=== PATIENT | female | born 1950 | race Caucasian/White ===

== ENCOUNTER 2018-10-15 15:58 | Observation (INO) | payer MEDICARE, OTHER ==
[2018-10-15] MEDS ORDERED: Temazepam 15 MG Cap PO PRN (16:17)
[2018-10-15] MEDS ORDERED: Ondansetron 4 MG/2 ML SDV IVPUSH PRN (16:30)
--- NOTE | 2018-10-15 16:35 | PCM.HP.2 ---
H&P History of Present Illness - General Date of Service: 10/15/18 Admit Problem/Dx: Admission Diagnosis/Problem Admission Diagnosis/Problem Dehydration Source of Information: Patient History Limitations: Reports: No Limitations - History of Present Illness Initial Comments - Free Text/Narative: Patient was diagnosed with pneumonia one month ago and treated with Zithromax. Patient states feeling better up until 7-10 days ago when she started with sinus congestion, and her CPAP settings were changed. Complains of sinus congestion, ears being plugged, PND and nausea and vomiting. patient is unable to keep food down. Onset of Symptoms: Reports: Gradual Duration of Symptoms: Reports: Getting Worse Location: Reports: Head Quality: Reports: Pressure Severity: Moderate Associated Symptoms: Reports: cough w sputum, Loss of Appetite, Nausea/Vomiting - Related Data Allergies/Adverse Reactions: Allergies Allergy/AdvReac Type Severity Reaction Status Date / Time amoxicillin trihydrate Allergy Abdominal Verified 01/02/14 15:48 [From Augmentin] Pain ibuprofen [From Motrin] Allergy Hives Verified 01/02/14 13:59 oxycodone [Oxycodone] Allergy Abdominal Verified 01/02/14 13:59 Pain potassium clavulanate Allergy Abdominal Verified 01/02/14 15:48 [From Augmentin] Pain Home Medications: Home Meds Acetaminophen [Tylenol] 650 mg PO Q4H PRN #20 tablet 01/09/14 [Rx] Aspirin [Halfprin] 81 mg PO BRK #90 tab.ec 01/09/14 [Rx] Calcium Carbonate [Tums Extra Strength] 750 mg PO DAILY #90 tab.chew 01/09/14 [ Rx] Cholecalciferol (Vitamin D3) [Vitamin D3] 1,000 units PO DAILY #90 tablet [Rx] Docusate Sodium/Sennosides [Senna Plus] 2 tab PO BID #90 tablet 01/09/14 [Rx] Loratadine [Claritin] 10 mg PO DAILY #90 tablet 01/09/14 [Rx] Nystatin [Nystatin Crm] 0 gm TOP QID PRN 14 Days tube 01/09/14 [Rx] Olmesartan [Benicar] 40 mg PO DAILY #90 tablet 01/09/14 [Rx] Simvastatin [Zocor] 20 mg PO BEDTIME #90 tablet 01/09/14 [Rx] metFORMIN [Glucophage] 500 mg PO BIDM #180 tablet 01/09/14 [Rx] traMADol [Ultram] 100 mg PO Q6H PRN #40 tablet 01/09/14 [Rx] Past Medical History - Past Health History Medical/Surgical History: Denies Medical/Surgical History HEENT History: Reports: Sinusitis Cardiovascular History: Reports: Hypertension Psychiatric History: Reports: Anxiety - Past Surgical History GI Surgical History: Reports: Cholecystectomy Female Surgical History: Reports: Tubal Ligation Other Endocrine Surgeries/Procedures: renal artery repair Musculoskeletal Surgical History: Reports: Knee Replacement Social & Family History - Tobacco Use Smoking Status *Q: Never Smoker - Alcohol Use Alcohol Use History: No - Living Situation & Occupation Living situation: Reports: Occupation: Retired H&P Review of Systems - Review of Systems: Review Of Systems: See Below General: Reports: Weakness, Fatigue, Decreased Appetite HEENT: Reports: Post Nasal Drip, Sinus Congestion Pulmonary: Reports: Cough Cardiovascular: Reports: No Symptoms Gastrointestinal: Reports: Decreased Appetite, Nausea, Vomiting Musculoskeletal: Reports: No Symptoms Skin: Reports: No Symptoms Psychiatric: Reports: Anxiety Neurological: Reports: No Symptoms Hematologic/Lymphatic: Reports: No Symptoms Immunologic: Reports: No Symptoms Exam - Exam Exam: See Below - Vital Signs Weight: 216 lb 8 oz - Exam General: Alert, Oriented, Cooperative HEENT: Conjunctiva Clear, EACs Clear, EOMI, Hearing Intact, Posterior Pharynx Clear, Pupils Reactive (pressure over the frontal and maxillary sinuses), TMs Clear Neck: Supple, Trachea Midline Lungs: Clear to Auscultation, Normal Respiratory Effort Cardiovascular: Regular Rate, Regular Rhythm, Normal S1, Normal S2 GI/Abdominal Exam: Normal Bowel Sounds, Soft, Non-Tender, No Organomegaly, No Distention Back Exam: Normal Inspection, Full Range of Motion Extremities: Normal Inspection, Normal Range of Motion, Non-Tender, No Pedal Edema, Normal Capillary Refill Peripheral Pulses: 1+: Dorsalis Pedis (L), Dorsalis Pedis (R) Skin: Warm, Dry, Intact Neurological: Cranial Nerves Intact, Reflexes Equal Bilateral, Strength Equal Bilateral Neuro Extensive - Mental Status: Alert, Oriented x3, Normal Mood/Affect, Normal Cognition, Memory Intact Neuro Extensive - Motor, Sensory, Reflexes: CN II-XII Intact, Normal Gait, Normal Reflexes DTR: 1+: Achilles (L), Achilles (R) Psychiatric: Alert, Normal Affect, Normal Mood - Problem List (1) Dehydration SNOMED Code(s): 03899368 ICD Code: E86.0 - DEHYDRATION Status: Acute Current Visit: Yes Problem Details: will start IV fluids (2) Diabetes SNOMED Code(s): 36789523 ICD Code: E11.9 - TYPE 2 DIABETES MELLITUS WITHOUT COMPLICATIONS Status: Acute Current Visit: Yes Qualifiers: Diabetes mellitus type: type 2 Diabetes mellitus complication status: without complication (3) Sinusitis SNOMED Code(s): 24840558 ICD Code: J32.9 - CHRONIC SINUSITIS, UNSPECIFIED Status: Acute Current Visit: Yes Qualifiers: Sinusitis location: maxillary Chronicity: acute (4) HTN, Essential hypertension SNOMED Code(s): 70029257 ICD Code: I10 - ESSENTIAL (PRIMARY) HYPERTENSION Status: Chronic Current Visit: No Problem Details: continue on Benicar Problem List Initiated/Reviewed/Updated: Yes Orders Last 24hrs: Active Orders 24 hr Category Date Time Status Patient Status [ADT] Routine ADT 10/15/18 16:17 Active Ambulate [RC] ASDIRECTED Care 10/15/18 16:17 Active Blood Glucose Check, Bedside [RC] BIDMEALS Care 10/15/18 16:17 Active May Shower [RC] ASDIRECTED Care 10/15/18 16:17 Active Oxygen Therapy [RC] PRN Care 10/15/18 16:17 Active VTE/DVT Education [RC] PER UNIT ROUTINE Care 10/15/18 16:17 Active Vital Signs [RC] Q4H Care 10/15/18 16:17 Active [employer] Diet [DIET] Diet 10/15/18 Dinner Active Chest 2V [CR] Routine Exams 10/15/18 16:00 Ordered Chest 2V [CR] Routine Exams 10/17/18 16:00 Stop Req BASIC METABOLIC PANEL,BMP [CHEM] AM Lab 10/16/18 05:11 Ordered C-REACTIVE PROTEIN [CHEM] AM Lab 10/16/18 05:11 Ordered CBC WITH AUTO DIFF [HEME] AM Lab 10/16/18 05:11 Ordered Acetaminophen [Tylenol] Med 10/15/18 16:17 Ordered 650 mg PO Q4H PRN Ondansetron [Zofran] Med 10/15/18 16:17 Ordered 4 mg IVPUSH Q6H PRN Sodium Chloride 0.9% @ 75 MLS/HR(1000ml) Med 10/15/18 16:30 Ordered Sodium Chloride 0.9% [Normal Saline] 1,000 ml IV ASDIRECTED Temazepam [Restoril] Med 10/15/18 16:17 Ordered 15 mg PO BEDTIME PRN methylPREDNISolone Sod Succ [Solu-MEDROL] Med 10/15/18 17:00 Ordered 40 mg IVPUSH DAILY Resuscitation Status Routine Resus Stat 10/15/18 16:17 Ordered Medication Orders Acetaminophen (Tylenol) 650 mg PO Q4H PRN PRN Reason: Pain (Mild 1-3)/fever Sodium Chloride (Normal Saline) 1,000 mls @ 75 mls/hr IV ASDIRECTED DAREN Methylprednisolone Sodium Succinate (Solu-Medrol) 40 mg IVPUSH DAILY DAREN Ondansetron HCl (Zofran) 4 mg IVPUSH Q6H PRN PRN Reason: Nausea/Vomiting Temazepam (Restoril) 15 mg PO BEDTIME PRN PRN Reason: Sleep Assessment/Plan Comment:: Patient is admitted to observation under Dr Sheets for dehydration with IV fluids. Will give one dose of solumedrol due to sinus pressure and recurrent sinusitis. Patient is diabetic, will monitor blood sugars. Recheck lab in the morning. Awaiting lab results. Patient agreed to plan of care and hospitalization. Kanchan Prince,CALIBRATION CHECKER
[2018-10-15] MEDS ORDERED: Levofloxacin/Dextrose 5%-Water 500 MG in Premix Bag 1 BAG IV ONE (16:43)
[2018-10-15 16:53] LABS: CHLORIDE,CL 100 mmol/L (98-107); SODIUM,NA 137 mmol/L (136-145)
[2018-10-15] MEDS: Sodium Chloride 0.9% 1,000 ML IV SCH (16:59)
[2018-10-15] MEDS: methylPREDNISolone Sodium Succinate 40 MG/1 ML SDV IVPUSH SCH (16:59)
[2018-10-15] MEDS: Acetaminophen 325 MG Tab PO PRN (17:20)
[2018-10-15] MEDS ORDERED: Sodium Chloride 0.9% 10 ML Syringe FLUSH PRN (18:54)
[2018-10-15] MEDS: metFORMIN 500 MG Tab PO SCH (19:36)
[2018-10-16] MEDS: Acetaminophen 325 MG Tab PO PRN ×2 (05:39)
[2018-10-16] MEDS: Sodium Chloride 0.9% 1,000 ML IV SCH (07:22)
[2018-10-16] MEDS: metFORMIN 500 MG Tab PO SCH (07:47)
[2018-10-16] MEDS: methylPREDNISolone Sodium Succinate 40 MG/1 ML SDV IVPUSH SCH (07:48)
[2018-10-16] MEDS ORDERED: Olmesartan 20 MG Tab PO SCH (08:00)
[2018-10-16 08:07] LABS: CHLORIDE,CL 102 mmol/L (98-107); SODIUM,NA 137 mmol/L (136-145)
[2018-10-16 11:11] VITALS: BP 146/56
--- NOTE | 2018-10-16 12:08 | PCM.PN ---
- General Info Date of Service: 10/16/18 Admission Dx/Problem (Free Text): Admission Diagnosis/Problem Admission Diagnosis/Problem Dehydration Functional Status: Reports: Pain Controlled - Review of Systems General: Reports: No Symptoms HEENT: Reports: No Symptoms Pulmonary: Reports: No Symptoms Cardiovascular: Reports: No Symptoms Gastrointestinal: Reports: No Symptoms Genitourinary: Reports: No Symptoms Musculoskeletal: Reports: No Symptoms Skin: Reports: No Symptoms Neurological: Reports: No Symptoms Psychiatric: Reports: No Symptoms - Patient Data Vitals - Most Recent: Last Vital Signs Temp 97.8 F 10/16/18 11:10 Pulse 97 10/16/18 11:10 Resp 18 10/16/18 11:10 BP 146/56 H 10/16/18 11:10 Pulse Ox 95 10/16/18 11:10 Weight - Most Recent: 216 lb 8 oz I&O - Last 24 Hours: Intake & Output 10/15/18 10/16/18 10/16/18 22:59 06:59 14:59 Intake Total 100 1245 924 Output Total 450 1225 400 Balance -350 20 524 Lab Results Last 24 Hours: Laboratory Results - last 24 hr 10/15/18 10/15/18 10/16/18 Range/Units 16:25 16:25 07:12 WBC 11.2 H (4.0-10.2) K/uL RBC 4.63 (3.77-5.09) M/uL Hgb 15.7 H (11.7-15.5) g/dL Hct 43.7 (34.0-46.0) % MCV 94.4 (84.0-98.0) fL MCH 33.9 H (28.2-33.3) pg MCHC 35.9 (31.7-36.0) g/dL RDW 12.2 (11.2-14.1) % Plt Count 267 (150-350) K/uL Neut % (Auto) 74.1 (45.0-80.0) % Lymph % (Auto) 18.9 (10.0-50.0) % [place] % (Auto) 6.3 (2.0-14.0) % Eos % (Auto) 0.4 (0.0-5.0) % Baso % (Auto) 0.3 (0.0-2.0) % Neut # (Auto) 8.29 H (1.40-7.00) K/uL Lymph # (Auto) 2.11 (0.50-3.50) K/uL [place] # (Auto) 0.70 (0.00-1.00) K/uL Eos # (Auto) 0.04 (0.00-0.50) K/uL Baso # (Auto) 0.03 (0.00-0.20) K/uL Sodium 137 (136-145) mmol/L Potassium 3.8 (3.5-5.1) mmol/L Chloride 100 (98-107) mmol/L Carbon Dioxide 26.5 (21.0-32.0) mmol/L BUN 10 (7-18) mg/dL Creatinine 0.62 (0.51-1.17) mg/dL Est Cr Clr Drug Dosing 66.78 mL/min Estimated GFR (MDRD) > 60 mL/min Glucose 200 H (74-106) mg/dL POC Glucose 261 H* (65-110) mg/dl Calcium 9.4 (8.5-10.1) mg/dL Total Bilirubin 0.6 (0.2-1.0) mg/dL AST 25 (15-37) U/L ALT 42 (12-78) U/L Alkaline Phosphatase 110 (46-116) IU/L C-Reactive Protein < 0.2 (<=0.9) mg/dL Total Protein 7.5 (6.4-8.2) g/dL Albumin 3.6 (3.4-5.0) g/dL 10/16/18 10/16/18 Range/Units 07:17 07:17 WBC 16.2 H (4.0-10.2) K/uL RBC 4.48 (3.77-5.09) M/uL Hgb 14.6 (11.7-15.5) g/dL Hct 42.0 (34.0-46.0) % MCV 93.8 (84.0-98.0) fL MCH 32.6 (28.2-33.3) pg MCHC 34.8 (31.7-36.0) g/dL RDW 12.1 (11.2-14.1) % Plt Count 283 (150-350) K/uL Neut % (Auto) 84.9 H (45.0-80.0) % Lymph % (Auto) 9.6 L (10.0-50.0) % [place] % (Auto) 5.4 (2.0-14.0) % Eos % (Auto) 0.0 (0.0-5.0) % Baso % (Auto) 0.1 (0.0-2.0) % Neut # (Auto) 13.74 H (1.40-7.00) K/uL Lymph # (Auto) 1.55 (0.50-3.50) K/uL [place] # (Auto) 0.88 (0.00-1.00) K/uL Eos # (Auto) 0.00 (0.00-0.50) K/uL Baso # (Auto) 0.01 (0.00-0.20) K/uL Sodium 137 (136-145) mmol/L Potassium 3.9 (3.5-5.1) mmol/L Chloride 102 (98-107) mmol/L Carbon Dioxide 25.7 (21.0-32.0) mmol/L BUN 10 (7-18) mg/dL Creatinine 0.54 (0.51-1.17) mg/dL Est Cr Clr Drug Dosing 76.67 mL/min Estimated GFR (MDRD) > 60 mL/min Glucose 274 H (74-106) mg/dL POC Glucose (65-110) mg/dl Calcium 9.0 (8.5-10.1) mg/dL Total Bilirubin (0.2-1.0) mg/dL AST (15-37) U/L ALT (12-78) U/L Alkaline Phosphatase (46-116) IU/L C-Reactive Protein < 0.2 (<=0.9) mg/dL Total Protein (6.4-8.2) g/dL Albumin (3.4-5.0) g/dL Med Orders - Current: Current Medications Acetaminophen (Tylenol) 650 mg PO Q4H PRN PRN Reason: Pain (Mild 1-3)/fever Last Admin: 10/16/18 05:39 Dose: 650 mg Sodium Chloride (Normal Saline) 1,000 mls @ 50 mls/hr IV ASDIRECTED DAREN Last Infusion: 10/16/18 08:54 Dose: 50 mls/hr Metformin HCl (Glucophage) 500 mg PO BIDMEALS [facility] Last Admin: 10/16/18 07:47 Dose: 500 mg Methylprednisolone Sodium Succinate (Solu-Medrol) 40 mg IVPUSH DAILY [facility] Last Admin: 10/16/18 07:48 Dose: 40 mg Olmesartan (Benicar) 40 mg PO DAILY [facility] Last Admin: 10/16/18 07:47 Dose: 40 mg Ondansetron HCl (Zofran) 4 mg IVPUSH Q6H PRN PRN Reason: Nausea/Vomiting Last Admin: 10/15/18 16:59 Dose: 4 mg Sodium Chloride (Saline Flush) 10 ml FLUSH ASDIRECTED PRN PRN Reason: Keep Vein Open Temazepam (Restoril) 15 mg PO BEDTIME PRN PRN Reason: Sleep Discontinued Medications Levofloxacin/Dextrose 500 mg/ (Premix) 100 mls @ 100 mls/hr IV ONETIME ONE Stop: 10/15/18 17:42 Last Admin: 10/15/18 17:20 Dose: 100 mls/hr Metformin HCl (Glucophage) 500 mg PO BIDM [facility] Non-Formulary Medication (Olmesartan Medoxomil [Benicar]) 40 mg PO DAILY [facility] - Exam General: Alert, Cooperative, No Acute Distress HEENT: Mucous Membr. Moist/[place] Neck: Trachea Midline, No JVD Lungs: Clear to Auscultation, Normal Respiratory Effort Cardiovascular: Regular Rate, Regular Rhythm GI/Abdominal Exam: Soft, Non-Tender, No Distention (Female) Exam: Deferred Back Exam: Normal Inspection Extremities: Non-Tender, No Pedal Edema Skin: Warm, Dry, Intact Neurological: No New Focal Deficit Psy/Mental Status: Alert, Normal Affect, Normal Mood - Problem List & Annotations (1) Dehydration SNOMED Code(s): 14902044 Code(s): E86.0 - DEHYDRATION Status: Acute Current Visit: Yes Annotation/Comment:: will start IV fluids (2) Diabetes SNOMED Code(s): 12140854 Code(s): E11.9 - TYPE 2 DIABETES MELLITUS WITHOUT COMPLICATIONS Status: Acute Current Visit: Yes Qualifiers: Diabetes mellitus type: type 2 Diabetes mellitus complication status: without complication (3) Sinusitis SNOMED Code(s): 89131388 Code(s): J32.9 - CHRONIC SINUSITIS, UNSPECIFIED Status: Acute Current Visit: Yes Qualifiers: Sinusitis location: maxillary Chronicity: acute (4) Allergic rhinitis SNOMED Code(s): 94847925 Code(s): J30.9 - ALLERGIC RHINITIS, UNSPECIFIED Status: Chronic Current Visit: No (5) Anxiety SNOMED Code(s): 68992823 Code(s): F41.9 - ANXIETY DISORDER, UNSPECIFIED Status: Chronic Current Visit: No (6) HTN, Essential hypertension SNOMED Code(s): 13792072 Code(s): I10 - ESSENTIAL (PRIMARY) HYPERTENSION Status: Chronic Current Visit: No Annotation/Comment:: continue on Benicar (7) Hyperlipidemia SNOMED Code(s): 59743946 Code(s): E78.5 - HYPERLIPIDEMIA, UNSPECIFIED Status: Chronic Current Visit: No - Problem List Review Problem List Initiated/Reviewed/Updated: Yes - My Orders Last 24 Hours: My Active Orders 10/16/18 12:02 Ready for Discharge [RC] PER UNIT ROUTINE 10/16/18 12:03 Discontinue Saline Lock [Peripheral IV Discontinue] [OM.PC] Routine - Plan Plan:: Patient is admitted to observation under Dr Sheets for dehydration with IV fluids. Will give one dose of solumedrol due to sinus pressure and recurrent sinusitis. Patient is diabetic, will monitor blood sugars. Recheck lab in the morning. Awaiting lab results. Patient agreed to plan of care and hospitalization. Kanchan Prince,GED TEACHER 10/16/18 Lindsey Fuentes MD Feels much better today. No vomiting. Ate a good breakfast. Nose unplugged. Blood sugar elevated secondary to solu-medrol. Ready for discharge. Discussed c- pap settings and humidity. Also was exposed to her brother (who is a smoker) x2 in car.
--- NOTE | 2018-10-16 12:09 | PCM.DCSUM1 ---
Discharge Summary - Hospital Course Diagnosis: Stroke: No - Discharge Data Discharge Date: 10/16/18 Discharge Disposition: Home, Self-Care 01 Condition: Good - Discharge Diagnosis/Problem(s) (1) Dehydration SNOMED Code(s): 35793568 ICD Code: E86.0 - DEHYDRATION Status: Acute Current Visit: Yes Problem Details: will start IV fluids (2) Diabetes SNOMED Code(s): 44832877 ICD Code: E11.9 - TYPE 2 DIABETES MELLITUS WITHOUT COMPLICATIONS Status: Acute Current Visit: Yes Qualifiers: Diabetes mellitus type: type 2 Diabetes mellitus complication status: without complication (3) Sinusitis SNOMED Code(s): 65580541 ICD Code: J32.9 - CHRONIC SINUSITIS, UNSPECIFIED Status: Acute Current Visit: Yes Qualifiers: Sinusitis location: maxillary Chronicity: acute (4) Allergic rhinitis SNOMED Code(s): 92471138 ICD Code: J30.9 - ALLERGIC RHINITIS, UNSPECIFIED Status: Chronic Current Visit: No (5) Anxiety SNOMED Code(s): 97453641 ICD Code: F41.9 - ANXIETY DISORDER, UNSPECIFIED Status: Chronic Current Visit: No (6) HTN, Essential hypertension SNOMED Code(s): 01107600 ICD Code: I10 - ESSENTIAL (PRIMARY) HYPERTENSION Status: Chronic Current Visit: No Problem Details: continue on Benicar (7) Hyperlipidemia SNOMED Code(s): 91936739 ICD Code: E78.5 - HYPERLIPIDEMIA, UNSPECIFIED Status: Chronic Current Visit: No - Patient Instructions Diet: Diabetic Diet Activity: As Tolerated Driving: May Drive Today Showering/Bathing: May Shower Other/Special Instructions: Follow up with Kanchan at [facility] as needed. - Discharge Plan *PRESCRIPTION DRUG MONITORING PROGRAM REVIEWED*: Not Applicable *COPY OF PRESCRIPTION DRUG MONITORING REPORT IN PATIENT TIFFANIE: Not Applicable Home Medications: Home Meds Acetaminophen [Tylenol] 650 mg PO Q4H PRN #20 tablet 01/09/14 [Rx] Simvastatin [Zocor] 20 mg PO BEDTIME #90 tablet 01/09/14 [Rx] metFORMIN [Glucophage] 500 mg PO BIDM #180 tablet 01/09/14 [Rx] Aspirin [Halfprin] 81 mg PO DAILY 10/15/18 [History] Cetirizine HCl [Zyrtec] 10 mg PO DAILY PRN 10/15/18 [History] Fluticasone Propionate [Flonase Allergy Relief] 1 spray NS DAILY 10/15/18 [ History] Magnesium 250 mg PO DAILY 10/15/18 [History] Olmesartan Medoxomil [Benicar] 40 mg PO DAILY 10/15/18 [History] diphenhydrAMINE HCl [Benadryl] 25 mg PO BEDTIME PRN 10/15/18 [History] Oxygen Therapy Mode: Room Air - Discharge Summary/Plan Comment DC Time >30 min.: No - Patient Data Vitals - Most Recent: Last Vital Signs Temp 97.8 F 10/16/18 11:10 Pulse 97 10/16/18 11:10 Resp 18 10/16/18 11:10 BP 146/56 H 10/16/18 11:10 Pulse Ox 95 10/16/18 11:10 Weight - Most Recent: 216 lb 8 oz I&O - Last 24 hours: Intake & Output 10/15/18 10/16/18 10/16/18 22:59 06:59 14:59 Intake Total 100 1245 924 Output Total 450 1225 400 Balance -350 20 524 Lab Results - Last 24 hrs: Laboratory Results - last 24 hr 10/15/18 10/15/18 10/16/18 Range/Units 16:25 16:25 07:12 WBC 11.2 H (4.0-10.2) K/uL RBC 4.63 (3.77-5.09) M/uL Hgb 15.7 H (11.7-15.5) g/dL Hct 43.7 (34.0-46.0) % MCV 94.4 (84.0-98.0) fL MCH 33.9 H (28.2-33.3) pg MCHC 35.9 (31.7-36.0) g/dL RDW 12.2 (11.2-14.1) % Plt Count 267 (150-350) K/uL Neut % (Auto) 74.1 (45.0-80.0) % Lymph % (Auto) 18.9 (10.0-50.0) % [place] % (Auto) 6.3 (2.0-14.0) % Eos % (Auto) 0.4 (0.0-5.0) % Baso % (Auto) 0.3 (0.0-2.0) % Neut # (Auto) 8.29 H (1.40-7.00) K/uL Lymph # (Auto) 2.11 (0.50-3.50) K/uL [place] # (Auto) 0.70 (0.00-1.00) K/uL Eos # (Auto) 0.04 (0.00-0.50) K/uL Baso # (Auto) 0.03 (0.00-0.20) K/uL Sodium 137 (136-145) mmol/L Potassium 3.8 (3.5-5.1) mmol/L Chloride 100 (98-107) mmol/L Carbon Dioxide 26.5 (21.0-32.0) mmol/L BUN 10 (7-18) mg/dL Creatinine 0.62 (0.51-1.17) mg/dL Est Cr Clr Drug Dosing 66.78 mL/min Estimated GFR (MDRD) > 60 mL/min Glucose 200 H (74-106) mg/dL POC Glucose 261 H* (65-110) mg/dl Calcium 9.4 (8.5-10.1) mg/dL Total Bilirubin 0.6 (0.2-1.0) mg/dL AST 25 (15-37) U/L ALT 42 (12-78) U/L Alkaline Phosphatase 110 (46-116) IU/L C-Reactive Protein < 0.2 (<=0.9) mg/dL Total Protein 7.5 (6.4-8.2) g/dL Albumin 3.6 (3.4-5.0) g/dL 10/16/18 10/16/18 Range/Units 07:17 07:17 WBC 16.2 H (4.0-10.2) K/uL RBC 4.48 (3.77-5.09) M/uL Hgb 14.6 (11.7-15.5) g/dL Hct 42.0 (34.0-46.0) % MCV 93.8 (84.0-98.0) fL MCH 32.6 (28.2-33.3) pg MCHC 34.8 (31.7-36.0) g/dL RDW 12.1 (11.2-14.1) % Plt Count 283 (150-350) K/uL Neut % (Auto) 84.9 H (45.0-80.0) % Lymph % (Auto) 9.6 L (10.0-50.0) % [place] % (Auto) 5.4 (2.0-14.0) % Eos % (Auto) 0.0 (0.0-5.0) % Baso % (Auto) 0.1 (0.0-2.0) % Neut # (Auto) 13.74 H (1.40-7.00) K/uL Lymph # (Auto) 1.55 (0.50-3.50) K/uL [place] # (Auto) 0.88 (0.00-1.00) K/uL Eos # (Auto) 0.00 (0.00-0.50) K/uL Baso # (Auto) 0.01 (0.00-0.20) K/uL Sodium 137 (136-145) mmol/L Potassium 3.9 (3.5-5.1) mmol/L Chloride 102 (98-107) mmol/L Carbon Dioxide 25.7 (21.0-32.0) mmol/L BUN 10 (7-18) mg/dL Creatinine 0.54 (0.51-1.17) mg/dL Est Cr Clr Drug Dosing 76.67 mL/min Estimated GFR (MDRD) > 60 mL/min Glucose 274 H (74-106) mg/dL POC Glucose (65-110) mg/dl Calcium 9.0 (8.5-10.1) mg/dL Total Bilirubin (0.2-1.0) mg/dL AST (15-37) U/L ALT (12-78) U/L Alkaline Phosphatase (46-116) IU/L C-Reactive Protein < 0.2 (<=0.9) mg/dL Total Protein (6.4-8.2) g/dL Albumin (3.4-5.0) g/dL Med Orders - Current: Current Medications Acetaminophen (Tylenol) 650 mg PO Q4H PRN PRN Reason: Pain (Mild 1-3)/fever Last Admin: 10/16/18 05:39 Dose: 650 mg Sodium Chloride (Normal Saline) 1,000 mls @ 50 mls/hr IV ASDIRECTED DAREN Last Infusion: 10/16/18 08:54 Dose: 50 mls/hr Metformin HCl (Glucophage) 500 mg PO BIDMEALS [facility] Last Admin: 10/16/18 07:47 Dose: 500 mg Methylprednisolone Sodium Succinate (Solu-Medrol) 40 mg IVPUSH DAILY [facility] Last Admin: 10/16/18 07:48 Dose: 40 mg Olmesartan (Benicar) 40 mg PO DAILY [facility] Last Admin: 10/16/18 07:47 Dose: 40 mg Ondansetron HCl (Zofran) 4 mg IVPUSH Q6H PRN PRN Reason: Nausea/Vomiting Last Admin: 10/15/18 16:59 Dose: 4 mg Sodium Chloride (Saline Flush) 10 ml FLUSH ASDIRECTED PRN PRN Reason: Keep Vein Open Temazepam (Restoril) 15 mg PO BEDTIME PRN PRN Reason: Sleep Discontinued Medications Levofloxacin/Dextrose 500 mg/ (Premix) 100 mls @ 100 mls/hr IV ONETIME ONE Stop: 10/15/18 17:42 Last Admin: 10/15/18 17:20 Dose: 100 mls/hr Metformin HCl (Glucophage) 500 mg PO BIDM [facility] Non-Formulary Medication (Olmesartan Medoxomil [Benicar]) 40 mg PO DAILY [facility]
[2018-10-16] MEDS ORDERED: metFORMIN 500 MG Tab PO SCH (17:30)
[2018-10-17] MEDS ORDERED: OLMESARTAN MEDOXOMIL 40 MG PO SCH (08:00)
== END 2018-10-16 12:40 | disposition home or self-care (01) ==
LOC: LL.DI 15:58 → LL.MS 16:15
PROVIDERS: ADMIT Nurse Practitioner Family; ATTEND Family Medicine
DX: E86.0 Dehydration (principal); E11.9 Type 2 diabetes mellitus without complications; J32.9 Chronic sinusitis, unspecified; J30.9 Allergic rhinitis, unspecified; F41.9 Anxiety disorder, unspecified; I10 Essential (primary) hypertension; E78.5 Hyperlipidemia, unspecified; Z79.82 Long term (current) use of aspirin
CPT/HCPCS: 36415; 71046; 80048; 80053; 82962; 85025; 86140; 96361; 96374; 96375; 96376; A9270; G0378; G0379; J1956; J2405; J2920; J7030

== ENCOUNTER 2019-11-13 13:40 | Emergency (ER) | payer MEDICARE, OTHER ==
[2019-11-13] MEDS ORDERED: Famotidine 20 MG/2 ML SDV IVPUSH ONE (14:08)
[2019-11-13] MEDS ORDERED: Lactated Ringers 1,000 ML IV ONE (14:08)
[2019-11-13] MEDS ORDERED: Pantoprazole 40 MG Vial IVPUSH ONE (14:08)
--- NOTE | 2019-11-13 14:08 | EDM.PDOC ---
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 Symptoms started about 9 PM yesterday evening, however have recurred 2 times since this morning. She denies any gross hematuria, colic, or other UTI symptoms. No recent history of other abdominal pain, heartburn, nausea, diarrhea, melena, gross hematochezia, or any food intolerance, including fatty foods, etc. with normal bowel movement earlier today. The patient denies any chest pain/pressure, heart flutter, dizziness, orthostasis, orthopnea, diaphoresis, paresthesias, recent decreased exercise tolerance, or any other anginal-type symptoms. The patient also denies any recent fever, cough, wheezing, dyspnea, etc.. Onset: Gradual Onset Date: 11/12/19 Onset Time: 21:00 Duration: Getting Worse, Intermittent Location: Reports: Abdomen, Back (Right CVA). Denies: Head, Face, Neck, Chest, Upper Extremity, Left, Upper Extremity, Right, Lower Extremity, Left, Lower Extremity, Right, Radiates to Quality: Reports: Same as Previous Episode, Stabbing Severity: Moderate Improves with: Reports: None Worsens with: Reports: None Context: Reports: Other (As above). Denies: Sick Contact, Trauma Associated Symptoms: Denies: Confusion, Chest Pain, Cough, Diaphoresis, Fever/Chills, Headaches, Loss of Appetite, Malaise, Nausea/Vomiting, Rash, Shortness of Breath, Syncope, Weakness Treatments MAC ARTIST: Reports: Other (see below) (None) Rt abdonimal pain/flank Pain Score (Numeric/FACES): 6 - Related Data Allergies Allergy/AdvReac Type Severity Reaction Status Date / Time amoxicillin trihydrate Allergy Abdominal Verified 11/13/19 13:53 [From Augmentin] Pain azelastine Allergy Other Verified 11/13/19 14:06 cephalexin Allergy Rash Verified 11/13/19 13:53 ciprofloxacin [From Cipro] Allergy Abdominal Verified 11/13/19 14:06 Pain hydrocodone Allergy Other Verified 11/13/19 13:53 ibuprofen [From Motrin] Allergy Hives Verified 11/13/19 13:53 montelukast [From Singulair] Allergy Edema Verified 11/13/19 14:06 oxycodone [Oxycodone] Allergy Abdominal Verified 11/13/19 13:53 Pain potassium clavulanate Allergy Abdominal Verified 11/13/19 13:53 [From Augmentin] Pain prednisone Allergy Other Verified 11/13/19 14:06 Home Meds: Home Meds Aspirin [Halfprin] 81 mg PO DAILY 10/15/18 [History] Cetirizine HCl [Zyrtec] 10 mg PO DAILY PRN 10/15/18 [History] Fluticasone Propionate [Flonase Allergy Relief] 1 spray NS DAILY PRN 10/15/18 [History] Olmesartan Medoxomil [Benicar] 40 mg PO DAILY 10/15/18 [History] diphenhydrAMINE HCL [Benadryl] 25 mg PO BEDTIME PRN 10/15/18 [History] Acetaminophen 2 tab PO Q6HR PRN 11/13/19 [History] Calcium Carbonate [Tums] 500 mg PO ASDIRECTED PRN 11/13/19 [History] Cyanocobalamin (Vitamin B12) [Vitamin B12] 500 mcg PO DAILY 11/13/19 [History] Simvastatin 0.5 tab PO BEDTIME 11/13/19 [History] calcium polycarbophiL [Fibercon] 625 mg PO DAILY 11/13/19 [History] metFORMIN [Glucophage] 1,000 mg PO BIDM 11/13/19 [History] Past Medical History HEENT History: Reports: Allergic Rhinitis, Cataract, Impaired Vision, Sinusitis, Other (See Below). Denies: Glaucoma, Hard of Hearing, Macular Degeneration, Otitis Media, Retinal Detachment Other HEENT History: Patient wears glasses. Cardiovascular History: Reports: Aneurysm, High Cholesterol, Hypertension, Other (See Below). 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 Respiratory History: Reports: Bronchitis, Recurrent, Intubation, Previous, Pneumonia, Recurrent, Sleep Apnea, Other (See Below). Denies: Asthma, COPD, Intubation, Difficult, PE, Pneumothorax, TB Other Respiratory History: Patient is compliant with her CPAP Gastrointestinal History: Reports: Cholelithiasis, Diverticulosis, Fatty Liver, Gastritis, GERD, GI Bleed, PUD, Other (See Below). Denies: Celiac Disease, Chronic Constipation, Chronic Diarrhea, Colon Polyp, Hepatitis, Hiatal Hernia, Inflammatory Bowel Disease, Irritable Bowel Syndrome, Jaundice, Pancreatitis Other Gastrointestinal History: History of recurrent GI bleed, including postoperatively on 09/23/2010 after cholecystectomy as below. Genitourinary History: Reports: Renal Calculus, Other (See Below). Denies: Acute Renal Failure, Chronic Renal Insuffiency, Retention, Urinary, STD, Urinary Incontinence, UTI, Recurrent Other Genitourinary History: Left nephrolithiasis with subsequent urolithiasis with spontaneous passage. ENTRY MANAGER History: Reports: Polycystic Ovaries, . Denies: Dysfunctional Uterine Bleeding, Endometriosis, Prolapsed Uterus, Spontaneous : 2 Para: 2 LMP (Approximate): Other (See Below) Other ENTRY MANAGER History: Benign right ovarian cyst by serial ultrasounds. Menopause at age 53. Full term without complications during pregnancies or deliveries Musculoskeletal History: Reports: Arthritis, Back Pain, Chronic, Fracture, Osteoarthritis, Osteoporosis, Other (See Below). Denies: Amputation, Neck Pain, Chronic, RA, SLE Other Musculoskeletal History: Right distal fibular ankle fracture 11/17/2009 complicated by a subcutaneous hematoma which did require an I&D. Mild scoliosis. Neurological History: Denies: Alzheimers Disease, Cerebral Aneurysms, Concussion, CVA, Headaches, Chronic, Head Trauma, Migraines, MS, Neuropathy, Peripheral, Seizure, TIA, Vertigo Psychiatric History: Reports: Anxiety, Depression. Denies: Abuse, Victim of, ADD, ADHD, Addiction, Psych Hospitalization(s), Psychosis, PTSD, Suicide Attempt, Suicidal Ideation Endocrine/Metabolic History: Reports: Diabetes, Type II, Obesity/BMI 30+, Osteopenia, Osteoporosis. Denies: Diabetes, Type I, Hypothyroidism, IDDM Hematologic History: Reports: None. Denies: Anemia, Blood Transfusion(s), Iron Deficiency Immunologic History: Reports: None. Denies: AIDS, HIV, SLE Oncologic (Cancer) History: Reports: None. Denies: Basal Cell Carcinoma, Breast, Cervix, Colon, Hodgkin's Lymphoma, Leukemia, Lymphoma, Malignant Melanoma, Non-Hodgkin's Lymphoma, Ovarian, Squamous Cell Carcinoma, Uterine Dermatologic History: Reports: None. Denies: Eczema, Psoriasis - Infectious Disease History Infectious Disease History: Reports: Chicken Pox. Denies: C-Difficile, Measles, Meningitis, Mononucleosis, MRSA, Mumps, Pertussis (Whooping Cough), Rheumatic Fever, Rubella, Scarlet Fever, Shingles, TB, VRE - Past Surgical History Head Surgeries/Procedures: Reports: None HEENT Surgical History: Reports: Oral Surgery, Other (See Below). Denies: Adenoidectomy, Cataract Surgery, Eye Surgery, Laser Surgery, LASIK, Myringotomy w Tube(s), Naso-Sinus Surgery, Tonsillectomy Other HEENT Surgeries/Procedures: Multiple teeth extractions. Cardiovascular Surgical History: Reports: Vascular Surgery, Other (See Below). Denies: Varicose Other Cardiovascular Surgeries/Procedures: Right renal artery coil embolization on 04/20/2015. Respiratory Surgical History: Reports: None. Denies: Thoracentesis GI Surgical History: Reports: Cholecystectomy, Hernia, Abdominal, Other (See Below). Denies: Appendectomy, Colonoscopy, EGD, Hernia, Inguinal, Hernia Repair/Other, Polypectomy Other GI Surgeries/Procedures: Laparoscopic cholecystectomy with concomitant umbilical hernia repair on 09/23/2010. Flexible sigmoidoscopy in 2001. Female Surgical History: Reports: Tubal Ligation, Other (See Below). Denies: Breast Biopsy, Section, D&C, Hysterectomy, Salpingo-Oophorectomy Other Female Surgeries/Procedures: Bilateral tubal ligation in about 1979. Endocrine Surgical History: Reports: None. Denies: Thyroid Biopsy Neurological Surgical History: Reports: None. Denies: C-Spine, Discectomy, Laminectomy, Lumbar Spine, Sacral Spine, Spinal Fusion, Thoracic Spine, Vertebroplasty Musculoskeletal Surgical History: Reports: Joint Replacement, Knee Replacement, Other (See Below). Denies: Arthroscopic Procedure, Carpal Tunnel, Ganglion Cyst, ORIF, Shoulder Surgery Other Musculoskeletal Surgeries/Procedures:: Right total knee arthroplasty on 12/30/2013. Oncologic Surgical History: Reports: None Dermatological Surgical History: Reports: None - Past Imaging History Past Imaging History: Reports: Angiography (Negative heart catheterization on 05/24/2018.), CAT Scan (CTA of the abdomen and pelvis in December 2018, 05/17/2017, and 05/10/2016. CT scan of the abdomen and pelvis on 03/25/2015.), DEXA Scan (Positive DEXA scan on 01/12/2014.), Mammogram (Last mammogram on 10/08/2019.), Sleep Study (07/29/2018.), Stress Testing (Positive Cardiolite stress test on 05/16/2018 indicating possible anterior wall cardiac ischemia with ejection fraction of 69% however subsequent negative heart catheterization as above.), Ultrasound (Pelvic ultrasound on 05/24/2016, 01/04/2016, 07/30/2015, and 03/30/2015.), Venous Doppler (Negative venous Doppler study of the right leg on 01/04/2016.) Social & Family History - Family History Cardiac: Reports: Afib, CAD, Hypertension, Other (See Below) Other Cardiac Family History: Brother with atrial fibrillation. Sister with possible coronary artery disease. Hypertension in parents and sister. GI: Reports: Colon Polyps, Other (See Below) Other GI Family History: Father with colon cancer as below. Neurological: Reports: TIA, Other (See Below). Denies: CVA, MS, Parkinson's, Seizure Other Neurological Family History: Mother with TIA rather than father, which was noted on one occasion in the previous medical record. Endocrine/Metabolic: Reports: Diabetes, type II, Hypothyroidism, IDDM, Other (See Below) Other Endocrine/Metabolic Family History: Paternal grandmother with AODM. Sister with IDDM and hypothyroidism. Oncologic: Reports: Esophageal, Leukemia, Renal, Other (See Below) Other Oncologic Family History: Sister with renal cancer in her 60s. Father from colon cancer in his 80s. Paternal uncle with fatal leukemia. Paternal uncle with fatal esophageal cancer. - Tobacco Use Smoking Status *Q: Never Smoker Tobacco Use Within Last Twelve Months: No Used Tobacco, but Quit: No Smoking Cessation Information Provided To Patient: No Second Hand Smoke Exposure: No Second Hand Smoke Education Provided: No - Caffeine Use Caffeine Use: Reports: Soda (1 soda per day). Denies: Coffee, Energy Drinks, Tea - Alcohol Use Alcohol Use History: Yes Days Per Week of Alcohol Use: 0 Number of Drinks Per Day: 1 Number of Drinks Per Day Comment: Usually mixed drinks for holidays. No previous DWIs, problems with alcohol abuse, etc. 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 ED EXAM, GENERAL - Physical Exam Exam: See Below Exam Limited By: No Limitations General Appearance: Alert, WD/WN, No Apparent Distress, Anxious (Mild) Eye Exam: Bilateral Eye: EOMI, Normal Inspection (No nystagmus. The patient is wearing glasses.), PERRL Ears: Normal External Exam, Normal Canal, Hearing Grossly Normal, Normal TMs Nose: Normal Inspection, Normal Mucosa, No Blood Throat/Mouth: Normal Inspection, Normal Lips, Normal Teeth, Normal Gums, Normal Oropharynx, Normal Voice, No Airway Compromise. No: Dysphagia, Perioral Cyanosis Head: Atraumatic, Normocephalic. No: Facial Swelling, Facial Tenderness, Sinus Tenderness Neck: Normal Inspection, Supple, Non-Tender, Full Range of Motion, Carotid Bruit (Mild bilateral carotid bruits). No: Lymphadenopathy (L), Lymphadenopathy (R), Thyromegaly Respiratory/Chest: No Respiratory Distress, Lungs Clear, Normal Breath Sounds, No Accessory Muscle Use, Chest Non-Tender. No: Pleural Rub, Retractions Cardiovascular: Normal Peripheral Pulses, No Edema (Dependent edema as below), No Gallop, No JVD, No Murmur, No Rub, Extra Beats (Regular rate with occasional extrasystoles). No: Gallop/S3, Gallop/S4, Friction Rub Peripheral Pulses: 2+: Radial (R), Femoral (L) GI/Abdominal: Normal Bowel Sounds, Soft, Non-Tender, No Organomegaly, No Distention, No Abnormal Bruit, No Mass, Other (Obese). No: Guarding (Female) Exam: Deferred Rectal (Female) Exam: Deferred Back Exam: Full Range of Motion, Other (Mild scoliosis). No: CVA Tenderness (L), CVA Tenderness (R), Muscle Spasm, Paraspinal Tenderness, Vertebral Tenderness Extremities: Normal Range of Motion, Non-Tender, Normal Capillary Refill, Pedal Edema (Trace bilateral pedal/pretibial edema). No: Melissa's Sign Neurological: Alert, Oriented, CN II-XII Intact, Normal Cognition, Normal Gait, No Motor/Sensory Deficits Psychiatric: Anxious (Mild). No: Depressed Mood Skin Exam: Warm, Dry, Intact, Normal Color, No Rash. No: Diaphoretic, Wound/Incision Lymphatic: No Adenopathy Course - Vital Signs Last Recorded V/S: Last Vital Signs Temp 36.7 C 11/13/19 13:42 Pulse 83 11/13/19 15:40 Resp 19 11/13/19 15:00 BP 152/60 H 11/13/19 15:40 Pulse Ox 99 11/13/19 15:00 Vital Signs - 24 hr 11/13/19 11/13/19 11/13/19 13:42 14:15 14:30 Temperature [ 36.7 C Oral] Pulse, 94 95 89 Peripheral [ Left Pulse Oximetry] Respiratory 17 21 H 22 H Rate Blood Pressure 143/78 H 143/64 H [Left Upper Arm ] O2 Sat by Pulse 97 98 98 Oximetry 11/13/19 11/13/19 11/13/19 14:45 15:00 15:40 Temperature [ Oral] Pulse, 87 88 83 Peripheral [ Left Pulse Oximetry] Respiratory 19 19 Rate Blood Pressure 147/61 H 156/75 H 152/60 H [Left Upper Arm ] O2 Sat by Pulse 98 99 Oximetry - Orders/Labs/Meds Orders: Active Orders 24 hr Category Date Time Status Cardiac Monitoring [RC] . DIRECTED Care 11/13/19 14:30 Active Peripheral IV Care [RC] . DIRECTED Care 11/13/19 14:09 Active Nothing Per Oral Diet [DIET] Diet 11/13/19 Breakfast Active Abdomen Pelvis w Cont [CT] Stat Exams 11/13/19 14:08 Taken CULTURE URINE [RM] Stat Lab 11/13/19 14:08 Ordered Sodium Chloride 0.9% [Saline Flush] Med 11/13/19 14:08 Active 10 ml FLUSH ASDIRECTED PRN Obtain Past Medical Record [OM.PC] Urgent Oth 11/13/19 14:08 Active Peripheral IV Insertion Adult [OM.PC] Stat Oth 11/13/19 14:08 Ordered Resuscitation Status Stat Resus Stat 11/13/19 14:08 Ordered Medication Orders Sodium Chloride (Saline Flush) 10 ml FLUSH ASDIRECTED PRN PRN Reason: Keep Vein Open Last Admin: 11/13/19 15:16 Dose: 10 ml Documented by: Admin: 11/13/19 15:03 Dose: 10 ml Documented by: Admin: 11/13/19 15:01 Dose: 10 ml Documented by: BETTIE Labs: Laboratory Tests 11/13/19 11/13/19 11/13/19 Range/Units 14:20 14:20 14:20 WBC 11.8 H (4.0-10.2) K/uL RBC 4.56 (3.77-5.09) M/uL Hgb 14.6 (11.7-15.5) g/dL Hct 43.5 (34.0-46.0) % MCV 95.4 (84.0-98.0) fL MCH 32.0 (28.2-33.3) pg MCHC 33.6 (31.7-36.0) g/dL RDW 12.6 (11.2-14.1) % Plt Count 291 (150-350) K/uL Neut % (Auto) 60.9 (45.0-80.0) % Lymph % (Auto) 27.1 (10.0-50.0) % Roberts % (Auto) 9.5 (2.0-14.0) % Eos % (Auto) 1.9 (0.0-5.0) % Baso % (Auto) 0.6 (0.0-2.0) % Neut # (Auto) 7.17 H (1.40-7.00) K/uL Lymph # (Auto) 3.19 (0.50-3.50) K/uL Roberts # (Auto) 1.12 H (0.00-1.00) K/uL Eos # (Auto) 0.22 (0.00-0.50) K/uL Baso # (Auto) 0.07 (0.00-0.20) K/uL PT 9.7 (9.5-12.0) SEC INR 1.0 APTT 22.8 L (24.5-32.8) SEC Sodium (136-145) mmol/L Potassium (3.5-5.1) mmol/L Chloride (98-107) mmol/L Carbon Dioxide (21.0-32.0) mmol/L BUN (7-18) mg/dL Creatinine (0.51-1.17) mg/dL Est Cr Clr Drug Dosing mL/min Estimated GFR (MDRD) mL/min Glucose (74-106) mg/dL Lactic Acid (0.4-2.0) mmol/L Uric Acid (2.6-7.2) mg/dL Calcium (8.5-10.1) mg/dL Magnesium (1.8-2.4) mg/dL Total Bilirubin (0.2-1.0) mg/dL AST (15-37) U/L ALT (12-78) U/L Alkaline Phosphatase (46-116) IU/L Total Protein (6.4-8.2) g/dL Albumin (3.4-5.0) g/dL Amylase 65 (25-115) U/L Lipase (73-393) U/L Specimen Type Urine Color Urine Appearance Urine pH (5.0-9.0) Ur Specific [place] (1.005-1.030) Urine Protein (NEGATIVE) mg/dL Urine Glucose (UA) (NEGATIVE) mg/dL Urine Ketones (NEGATIVE) mg/dL Urine Occult Blood (NEGATIVE) Urine Nitrite (NEGATIVE) Urine Bilirubin (NEGATIVE) Urine Urobilinogen (0.2-1.0) E.U./dL Ur Leukocyte Esterase (NEGATIVE) Urine RBC /HPF Urine WBC /HPF Ur Epithelial Cells /LPF Urine Bacteria (NONE TO FEW) /HPF 11/13/19 11/13/19 11/13/19 Range/Units 14:20 14:20 14:50 WBC (4.0-10.2) K/uL RBC (3.77-5.09) M/uL Hgb (11.7-15.5) g/dL Hct (34.0-46.0) % MCV (84.0-98.0) fL MCH (28.2-33.3) pg MCHC (31.7-36.0) g/dL RDW (11.2-14.1) % Plt Count (150-350) K/uL Neut % (Auto) (45.0-80.0) % Lymph % (Auto) (10.0-50.0) % Roberts % (Auto) (2.0-14.0) % Eos % (Auto) (0.0-5.0) % Baso % (Auto) (0.0-2.0) % Neut # (Auto) (1.40-7.00) K/uL Lymph # (Auto) (0.50-3.50) K/uL Roberts # (Auto) (0.00-1.00) K/uL Eos # (Auto) (0.00-0.50) K/uL Baso # (Auto) (0.00-0.20) K/uL PT (9.5-12.0) SEC INR APTT (24.5-32.8) SEC Sodium 138 (136-145) mmol/L Potassium 4.1 (3.5-5.1) mmol/L Chloride 101 (98-107) mmol/L Carbon Dioxide 25.9 (21.0-32.0) mmol/L BUN 16 (7-18) mg/dL Creatinine 0.61 (0.51-1.17) mg/dL Est Cr Clr Drug Dosing 63.83 mL/min Estimated GFR (MDRD) > 60 mL/min Glucose 209 H (74-106) mg/dL Lactic Acid 2.6 H (0.4-2.0) mmol/L Uric Acid 4.9 (2.6-7.2) mg/dL Calcium 9.5 (8.5-10.1) mg/dL Magnesium 1.8 (1.8-2.4) mg/dL Total Bilirubin 0.4 (0.2-1.0) mg/dL AST 37 (15-37) U/L ALT 49 (12-78) U/L Alkaline Phosphatase 131 H (46-116) IU/L Total Protein 7.5 (6.4-8.2) g/dL Albumin 3.7 (3.4-5.0) g/dL Amylase (25-115) U/L Lipase 151 (73-393) U/L Specimen Type Urinvoid Urine Color Yellow Urine Appearance Clear Urine pH 5.5 (5.0-9.0) Ur Specific [place] 1.020 (1.005-1.030) Urine Protein Negative (NEGATIVE) mg/dL Urine Glucose (UA) 100 H (NEGATIVE) mg/dL Urine Ketones Negative (NEGATIVE) mg/dL Urine Occult Blood Trace-lysed H (NEGATIVE) Urine Nitrite Negative (NEGATIVE) Urine Bilirubin Negative (NEGATIVE) Urine Urobilinogen 0.2 (0.2-1.0) E.U./dL Ur Leukocyte Esterase Negative (NEGATIVE) Urine RBC 0-5 /HPF Urine WBC 0-5 /HPF Ur Epithelial Cells Few /LPF Urine Bacteria Few (NONE TO FEW) /HPF Urine specimen set up for culture and sensitivity. Meds: Medications Generic Name Dose Route Start Last Admin Trade Name Freq PRN Reason Stop Dose Admin Sodium Chloride 10 ml 11/13/19 14:08 11/13/19 15:16 Saline Flush FLUSH 10 ml ASDIRECTED PRN Administration Keep Vein Open Discontinued Medications Generic Name Dose Route Start Last Admin Trade Name Freq PRN Reason Stop Dose Admin Famotidine 40 mg 11/13/19 14:08 11/13/19 15:01 Pepcid IVPUSH 11/13/19 14:09 40 mg ONETIME ONE Administration Lactated Ringer's 1,000 mls @ 999 mls/hr 11/13/19 14:08 11/13/19 15:02 Ringers, Lactated IV 11/13/19 15:08 999 mls/hr .BOLUS ONE Administration Iopamidol 100 ml 11/13/19 14:25 11/13/19 15:14 Isovue-300 (61%) IVPUSH 11/13/19 14:26 100 ml ONETIME ONE Administration Iopamidol Confirm 11/13/19 14:29 Isovue-300 (61%) Administered 11/13/19 14:30 Dose 150 ml .ROUTE .STK-MED ONE Iopamidol Confirm 11/13/19 14:30 Isovue-300 (61%) Administered 11/13/19 14:31 Dose 100 ml .ROUTE .STK-MED ONE Pantoprazole Sodium 40 mg 11/13/19 14:08 11/13/19 15:01 Protonix Iv IVPUSH 11/13/19 14:09 40 mg ONETIME ONE Administration - Radiology Interpretation Free Text/Narrative:: court recording monitor shows mild sinus arrhythmia with occasional PACs and PVCs with no other significant cardiac arrhythmia. Official CT scan report of CT scan of the abdomen and pelvis with IV contrast indicates no acute abnormalities including significant change of her previous right renal artery/coil embolization, diverticulitis, hydronephrosis, etc. Note newly diagnosed incidental periduodenal diverticulum. Likely stable right ovarian cyst. No acute abdominal findings noted. Departure - Departure Time of Disposition: 17:45 Disposition: Home, Self-Care 01 Clinical Impression: HTN, Essential hypertension, Hyperlipidemia, Peptic ulcer disease, Mixed anxiety depressive disorder, Aneurysm of right renal artery, PAC (premature atrial contraction), PVCs (premature ventricular contractions), Elevated lactic acid level Abdominal pain Qualifiers: Abdominal location: right lower quadrant Qualified Code(s): R10.31 - Right lower quadrant pain Diabetes mellitus Qualifiers: Diabetes mellitus type: type 2 Diabetes mellitus skilled nursing insulin use: without skilled nursing use Diabetes mellitus complication status: without complication Qualified Code(s): E11.9 - Type 2 diabetes mellitus without complications Osteoarthritis Qualifiers: Osteoarthritis location: multiple joints Osteoarthritis type: primary Qualified Code(s): M89.49 - Other hypertrophic osteoarthropathy, multiple sites - Discharge Information *PRESCRIPTION DRUG MONITORING PROGRAM REVIEWED*: Not Applicable *COPY OF PRESCRIPTION DRUG MONITORING REPORT IN PATIENT TIFFANIE: Not Applicable Instructions: Abdominal Pain, Adult, [id number] Referrals: Kanchan Prince NP [Primary Care Provider] - Forms: ED Department Discharge Additional Instructions: 1. Follow-up with your regular provider in the a.m. for reevaluation and recommended repeat CBC, comprehensive metabolic panel, and lactic acid level. Please note that these laboratory test results should be obtained before you leave their office. Consider antibiotic therapy, hospitalization, etc., if lactic acid level elevation, etc. persists, 2. [place] diet including encouragement of oral fluids such as sports drinks, etc. for 24-48 hours as directed. Advance to heart healthy, 1500-calorie ADA, diverticulosis diet as tolerated thereafter. 3. Immediately after this visit verify that your cellular telephone's voicemail has been activated and is empty. Also verify that your home telephone's answering machine is operating properly and has space to receive messages. Note that it is sometimes necessary for us to be able to contact you at a later date to discuss your medical care. 4. Please remember that we are ALWAYS here for you and want to answer any questions you may have. Feel free to call the hospital any time and we call you back CARL. 5. Secondary to IV contrast today hold your metformin/Glucophage for 48 hours as per instructions from radiology. Sepsis Event Note (ED) - Evaluation Sepsis Screening Result: No Definite Risk - Focused Exam Vital Signs: Vital Signs Temp Pulse Resp BP Pulse Ox 11/13/19 15:40 83 152/60 H 11/13/19 15:00 88 19 156/75 H 99 11/13/19 14:45 87 19 147/61 H 98 11/13/19 14:30 89 22 H 98 11/13/19 14:15 95 21 H 143/64 H 98 11/13/19 13:42 36.7 C 94 17 143/78 H 97 - Problem List & Annotations (1) Abdominal pain SNOMED Code(s): 31644834 Code(s): R10.9 - UNSPECIFIED ABDOMINAL PAIN Status: Acute Priority: High Current Visit: Yes Onset Date: 11/12/19 Annotation/Comment:: Nonspecific abdominal pain with complete resolution of symptoms prior to patient's discharge. The patient was initially certain that this was related to her previous right renal aneurysm, however note CT scan of the abdomen and pelvis results as above. Study limited by previous coil, however no direct evidence of acute changes. Note newly diagnosed duodenal diverticulum, however this is likely not of clinical relevance at this time. Various etiologies of patient's symptoms could be peptic ulcer disease, previous right renal artery coil embolization, and/or urolithiasis, however no evidence of hydronephrosis or urolithiasis at this time. No fever with mild leukocytosis likely secondary to stress reaction. Mild lactic acid elevation, however no direct evidence of clinical sepsis. Various therapeutic options were discussed with the patient, including admission to this facility, etc. She is requesting outpatient treatment with close follow-up by regular provider as per discharge instructions. Further GI work-up depending on her clinical course. Qualifiers: Abdominal location: right lower quadrant Qualified Code(s): R10.31 - Right lower quadrant pain (2) Elevated lactic acid level SNOMED Code(s): 6916024 Code(s): R79.89 - OTHER SPECIFIED ABNORMAL FINDINGS OF BLOOD CHEMISTRY Status: Acute Priority: High Current Visit: Yes Onset Date: 11/13/19 Annotation/Comment:: Patient bolused with 1 L of IV lactated Ringer's solution. No fever however mild WBC elevation as above. No clinical evidence of sepsis with no indication for antibiotic therapy at this time. (3) Aneurysm of right renal artery SNOMED Code(s): 26342989198638391 Code(s): I72.2 - ANEURYSM OF RENAL ARTERY Status: Chronic Priority: Medium Current Visit: Yes Annotation/Comment:: Note previous coil embolization with additional history of current splenic artery aneurysm with no procedure to this point. Continue to observe closely by regular providers. (4) Mixed anxiety depressive disorder SNOMED Code(s): 736314785 Code(s): F41.8 - OTHER SPECIFIED ANXIETY DISORDERS Status: Chronic Priority: Medium Current Visit: Yes Annotation/Comment:: Stable by history. Continue to observe closely by regular provider. (5) Osteoarthritis SNOMED Code(s): 528684091 Code(s): M19.90 - UNSPECIFIED OSTEOARTHRITIS, UNSPECIFIED SITE Status: Chronic Priority: Medium Current Visit: Yes Annotation/Comment:: Stable by history with additional history of osteoporosis. Qualifiers: Osteoarthritis location: multiple joints Osteoarthritis type: primary Qualified Code(s): M89.49 - Other hypertrophic osteoarthropathy, multiple sites (6) Peptic ulcer disease SNOMED Code(s): 95880240 Code(s): K27.9 - PEPTIC ULC, SITE UNSP, UNSP AC OR CHR, W/O HEMOR OR PERF Status: Chronic Priority: Medium Current Visit: Yes Annotation/Comment:: Previous history of recurrent GI bleeds as above. High-dose IV Pepcid and IV Protonix given as GI prophylaxis. Consider further GI work-up, including possible EGD, etc. depending on her clinical course. (7) HTN, Essential hypertension SNOMED Code(s): 27799921 Code(s): I10 - ESSENTIAL (PRIMARY) HYPERTENSION Status: Chronic Priority: Medium Current Visit: Yes Annotation/Comment:: Blood pressures under good control in the emergency room. (8) Hyperlipidemia SNOMED Code(s): 52045392 Code(s): E78.5 - HYPERLIPIDEMIA, UNSPECIFIED Status: Chronic Priority: Medium Current Visit: Yes Annotation/Comment:: Currently under therapy. Note weight loss in moderation is advisable. (9) PAC (premature atrial contraction) SNOMED Code(s): 701247727 Code(s): I49.1 - ATRIAL PREMATURE DEPOLARIZATION Status: Acute Priority: Medium Current Visit: Yes Onset Date: 11/13/19 Annotation/Comment:: Nonsymptomatic. Observe for now. Note previous negative heart catheterization as above. (10) PVCs (premature ventricular contractions) SNOMED Code(s): 72067347 Code(s): I49.3 - VENTRICULAR PREMATURE DEPOLARIZATION Status: Acute Priority: Medium Current Visit: Yes Onset Date: 11/13/19 Annotation/Comment:: Nonsymptomatic. Observe for now. (11) Diabetes mellitus SNOMED Code(s): 99349439 Code(s): E11.9 - TYPE 2 DIABETES MELLITUS WITHOUT COMPLICATIONS Status: Chronic Priority: Medium Current Visit: Yes Annotation/Comment:: Stable by patient history. Glucophage to be held secondary to IV contrast today. Weight loss in moderation advisable. Qualifiers: Diabetes mellitus type: type 2 Diabetes mellitus middle or intermediate [employer] principal insulin use: without skilled nursing use Diabetes mellitus complication status: without complication Qualified Code(s): E11.9 - Type 2 diabetes mellitus without comp lications (12) Duodenal diverticulum SNOMED Code(s): 393650514 Code(s): K57.10 - DVRTCLOS OF SM INT W/O PERFORATION OR ABSCESS W/O BLEEDING Status: Acute Priority: Medium Current Visit: Yes Onset Date: 11/13/19 Annotation/Comment:: Incidental finding. Observe for now as above. (13) Diverticulosis SNOMED Code(s): 531079465 Code(s): K57.90 - DVRTCLOS OF INTEST, PART UNSP, W/O PERF OR ABSCESS W/O BLEED Status: Chronic Priority: Medium Current Visit: Yes Annotation/Comment:: No evidence of diverticulitis by CT scan. - Problem List Review Problem List Initiated/Reviewed/Updated: Yes - My Orders Last 24 Hours: My Active Orders 11/13/19 Breakfast Nothing Per Oral Diet [DIET] 11/13/19 14:08 Abdomen Pelvis w Cont [CT] Stat CULTURE URINE [RM] Stat Sodium Chloride 0.9% [Saline Flush] 10 ml FLUSH ASDIRECTED PRN Obtain Past Medical Record [OM.PC] Urgent Peripheral IV Insertion Adult [OM.PC] Stat Resuscitation Status Stat 11/13/19 14:09 Peripheral IV Care [RC] . DIRECTED 11/13/19 14:30 Cardiac Monitoring [RC] . DIRECTED - Assessment/Plan Last 24 Hours: My Active Orders 11/13/19 Breakfast Nothing Per Oral Diet [DIET] 11/13/19 14:08 Abdomen Pelvis w Cont [CT] Stat CULTURE URINE [RM] Stat Sodium Chloride 0.9% [Saline Flush] 10 ml FLUSH ASDIRECTED PRN Obtain Past Medical Record [OM.PC] Urgent Peripheral IV Insertion Adult [OM.PC] Stat Resuscitation Status Stat 11/13/19 14:09 Peripheral IV Care [RC] . DIRECTED 11/13/19 14:30 Cardiac Monitoring [RC] . DIRECTED Assessment:: As above Plan: As above. Extensive precautions were given to the patient, who is in agreement with the treatment plan. See Patient Instructions for further treatment and plan.
[2019-11-13] MEDS ORDERED: Iopamidol 612 MG/ML 100 ML Bottle IVPUSH ONE (14:25)
[2019-11-13] MEDS ORDERED: Iopamidol 612 MG/ML 150 ML Bottle ONE (14:29)
[2019-11-13] MEDS ORDERED: Iopamidol 612 MG/ML 100 ML Bottle ONE (14:30)
[2019-11-13 14:45] LABS: PTT,PARTIAL THROMBOPLSTIN TIME 22.8 SEC (24.5-32.8)
[2019-11-13 14:59] LABS: CHLORIDE,CL 101 mmol/L (98-107); SODIUM,NA 138 mmol/L (136-145)
[2019-11-13] MEDS: Sodium Chloride 0.9% 10 ML Syringe FLUSH PRN ×3 (15:01→15:16)
[2019-11-13 17:10] VITALS: BP 152/60; PULSE 83
== END 2019-11-13 18:02 | disposition home or self-care (01) ==
LOC: LL.ED 13:40
DX: I10 Essential (primary) hypertension (principal); F41.8 Other specified anxiety disorders; I49.1 Atrial premature depolarization; E78.5 Hyperlipidemia, unspecified; I49.3 Ventricular premature depolarization; K27.9 Peptic ulcer, site unspecified, unspecified as acute or chronic, without hemorrhage or perforation; I71.4 Abdominal aortic aneurysm, without rupture; E11.9 Type 2 diabetes mellitus without complications; M89.49 Other hypertrophic osteoarthropathy, multiple sites; R74.0 Nonspecific elevation of levels of transaminase and lactic acid dehydrogenase [LDH]; Z79.84 Long term (current) use of oral hypoglycemic drugs; Z88.1 Allergy status to other antibiotic agents; Z88.8 Allergy status to other drugs, medicaments and biological substances; Z88.5 Allergy status to narcotic agent; Z79.82 Long term (current) use of aspirin; Z79.899 Other long term (current) drug therapy
CPT/HCPCS: 36415; 74177; 80053; 81001; 82150; 83605; 83690; 83735; 84550; 85025; 85610; 85730; 87086; 96361; 96374; 96375; 99284-25; C9113; J3490; J7120; Q9967

== ENCOUNTER 2021-08-09 06:59 | Emergency (ER) | payer MEDICARE ==
[2021-08-09] MEDS ORDERED: diphenhydrAMINE 50 MG/ML SDV IM ONE (07:02)
[2021-08-09 08:07] VITALS: BP 148/68; PULSE 89
== END 2021-08-09 08:19 | disposition home or self-care (01) ==
LOC: SUPCPDRO 06:59 → LL.ED 06:59
DX: T78.40XA Allergy, unspecified, initial encounter (principal); E78.00 Pure hypercholesterolemia, unspecified; I11.0 Hypertensive heart disease with heart failure; I50.9 Heart failure, unspecified; J44.9 Chronic obstructive pulmonary disease, unspecified; K21.9 Gastro-esophageal reflux disease without esophagitis; E11.9 Type 2 diabetes mellitus without complications; E66.9 Obesity, unspecified; Z68.31 Body mass index [BMI] 31.0-31.9, adult; Z79.899 Other long term (current) drug therapy
CPT/HCPCS: 96372; 99283; J1200